=== PATIENT | female | born 1980 | race Caucasian/White ===

== ENCOUNTER 2017-09-20 12:37 | Emergency (ER) | payer OTHER ==
[~2017-09-20] VITALS: Ht 165.1 cm; Wt 123.0 kg
[2017-09-20 16:01] VITALS: BP 148/89
== END 2017-09-20 13:50 | disposition home or self-care (01) ==
LOC: FSED 12:37
DX: M54.41 Lumbago with sciatica, right side (principal); R03.0 Elevated blood-pressure reading, without diagnosis of hypertension
CPT/HCPCS: 99281